=== PATIENT | male | born 1950 | race Caucasian/White ===

== ENCOUNTER → 2021-01-14 07:04 | Outpatient (CLI) | payer OTHER, SELFPAY ==
[2021-01-14 08:17] LABS: Add Manual Diff / Slide Review NO; Basophils Absolute Auto 0 /uL (0-100); Basophils Percent Auto 0.7 % (0-2); Eosinophils Absolute Auto 100 /uL (0-450); Eosinophils Percent Auto 2.3 % (2-4); Hematocrit 46.9 % (41-53); Hemoglobin 15.5 g/dL (13.5-17.5); Lymphocytes Absolute Auto 900 /uL (1100-4500); Lymphocytes Percent Auto 19.7 % (25-40); Mean Corpuscular Volume 94.1 fL (80-100); Monocytes Absolute Auto 400 /uL (0-900); Monocytes Percent Auto 8.9 % (3-14); Neutrophils Absolute Auto 3000 /uL (1500-7000); Neutrophils Percent Auto 68.4 % (50-75); Platelet Count 218 X10^3/uL (150-400); Red Blood Cell Count 4.99 X10^6/uL (4.5-5.9); Red Cell Distribution Width 14.2 % (11.6-14.8); White Blood Cell Count 4.5 X10^3/uL (4.5-11.0)
[2021-01-14 08:35] LABS: Hemoglobin A1C% w Est Avg Glu 5.3 % (4.0-6.0)
[2021-01-14 08:41] LABS: Alanine Aminotransferase 34 IU/L (<50); Albumin 4.3 g/dL (3.5-5.0); Albumin Globulin Ratio 1.9 (1.0-2.8); Alkaline Phosphatase 85 U/L (38-126); Aspartate Aminotransferase 33 IU/L (17-59); BUN Creatinine Ratio 28.8 (6-22); Bilirubin Total 0.7 mg/dL (0.2-1.3); Blood Urea Nitrogen 23 mg/dL (9-20); Calcium 9.4 mg/dL (8.4-10.2); Carbon Dioxide 27 mmol/L (22-32); Chloride 107 mmol/L (98-107); Cholesterol 119 mg/dL (140-199); Estimated Glomerular Filt Rate > 60.0 mL/min (>60); Globulin 2.3 g/dL (1.7-4.1); Glucose 98 mg/dL (80-110); HDL Cholesterol 62 mg/dL (40-60); HEMOLYSIS < 15 (0-50); LDL Cholesterol Calculated 44 mg/dL (<100); Potassium 4.5 mmol/L (3.4-5.1); Sodium 141 mmol/L (137-145); Total Protein 6.6 g/dL (6.3-8.2); Triglycerides 65 mg/dL (35-150)
== END ==
PROVIDERS: PCP Family Medicine; Referring Provider Orthopaedic Surgery; Visit Provider Orthopaedic Surgery
DX: Z01.812 Encounter for preprocedural laboratory examination (principal); I10 Essential (primary) hypertension; Z01.818 Encounter for other preprocedural examination; M25.562 Pain in left knee; R73.9 Hyperglycemia, unspecified
CPT/HCPCS: 36415; 80053; 80061; 83036; 85025; 93005; 93010

== ENCOUNTER → 2021-02-12 15:58 | Outpatient (CLI) | payer OTHER, SELFPAY ==
[2021-02-12 16:23] LABS: COVID19 -Nasal RAPID Negative (Negative)
== END ==
PROVIDERS: PCP Family Medicine; Referring Provider Nurse Practitioner; Visit Provider Nurse Practitioner
DX: Z20.822 Contact with and (suspected) exposure to COVID-19 (principal); Z01.812 Encounter for preprocedural laboratory examination
CPT/HCPCS: 87635

== ENCOUNTER 2021-02-15 13:40 | Observation (INO) | payer OTHER, SELFPAY ==
[2021-02-09 08:56] VITALS: BMI 25.4
[2021-02-15] VITALS (13 sets, daily range): BP systolic 120–160; BP diastolic 53–80; PULSE 46–82; RESP 8–18; TEMP 35.6–37; O2SAT 90–98; BMI 25.4
[2021-02-15] MEDS: CELECOXIB 200 MG CAPSULE PO (14:22)
[2021-02-15] MEDS: PREGABALIN 75 MG CAPSULE PO (14:22)
[2021-02-15] MEDS: ACETAMINOPHEN 325 MG TABLET 975 MG PO (14:22)
[2021-02-15] MEDS: LACTATED RINGERS 1,000 ML 42 ML IV ×2 (14:28→16:57)
--- NOTE | 2021-02-15 14:45 | DI.RAD.S_ITS ---
PROCEDURE: XR KNEE LT 1TO2V INDICATIONS: RT TOTAL KNEE TECHNIQUE: 2 view(s) of the knee acquired. [facility] 4+ VIEWS LEFT, 11/24/2020, 14:17. FINDINGS: Bones: Patient is status post knee joint arthroplasty. Hardware components are in expected positions. Visualized bony structures are intact. Soft tissues: Overlying postoperative changes are noted. IMPRESSION: Expected appearance of the left total knee arthroplasty. Dictated by: Mario Alberto Albarado M.D. on 02/16/2021 at 8:18 Approved by: Mario Alberto Albarado M.D. on 02/16/2021 at 8:18
--- NOTE | 2021-02-15 15:10 | PM.PREOP ---
Pre-operative Note COVID-19 COVID-19 status: Negative Result date/Date tested (Pos, Neg/Pending): 02/12/21 Interval Note History & Physical reviewed/Exam performed by Physician: Yes Changes to H&P: No
--- NOTE | 2021-02-15 15:19 | PM.OP.1 ---
Operative Date/Time/Diagnoses Date of procedure: 02/15/21 Time of procedure: 17:30 Pre-op diagnosis: Left knee osteoarthritis Post-op diagnosis: same Procedure & Clinicians Procedure: Left total knee replacement Same procedure as scheduled: Yes Indications: The patient has had progressively worsening left knee pain with radiographic changes consistent with arthritis. Non-operative management has failed and the patient has requested total knee replacement. The risks, benefits and alternatives to surgery were discussed with the patient prior to proceeding. Risks discussed included, but were not limited to, failure to relieve pain, stiffness, infection, nerve damage, deep venous thrombosis, pulmonary embolism, stroke, coma, heart attack, permanent paralysis and , as well as the potential need for eventual revision of the prosthetic. Surgeon: Mehrdad Head Neuro Urologist: Giovanni Muñoz Click Yes if Unassisted: No Anesthesia Type: Local Operative Notes Findings: Severe medial and moderate patellofemoral osteoarthritis. Closure Type: primary Specimen(s): none sent Prosthetic devices, grafts, tissues, transplants, or devices: Implants used in this procedure were manufactured by the [employer] and [employer] and included the BCS II Journey total knee replacement with a size 6 left cobalt chromium femoral component, size 5 left non porous tibial base plate, a 10 mm cross-linked polyethylene tibial insert and a 35 mm oval Kelly II patellar resurfacing component. Applied: implant(s) Estimated Blood Loss (mL): 25 Blood products transfused: none Tourniquet time (min): 51 Procedure in detail: The patient was seen in the pre-operative area, where the left knee was identified as the operative site and this was marked with my initials. The patient received pre-operative antibiotics, and was taken to the operating room and placed on the operative table in the supine position. After satisfactory anesthesia, a audio technician out was performed. The left leg was encircled with a tourniquet about the proximal thigh, and the leg was prepared from the toes to the tourniquet with ChloroPrep in the usual fashion and draped through sterile drapes. The leg was elevated and exsanguinated with Eschmark bandage and the tourniquet inflated to 250 mmHg pressure. The knee was approached through an approximately 18 cm incision centered over the patella and carried into the knee through a medial parapatellar arthrotomy. The anterior osteophytes and soft tissues were removed. The rotational landmarks of Eddy's line and the transepicondylar axis were marked on the femur with electrocautery, and intramedullary guide holes for the femur and tibia were created. The distal femoral cut was made in 6 degrees of valgus using the intramedullary guide at the primary cut setting. The proximal tibial cut was then made using the intramedullary guide, taking 9 mm of bone off the less involved side. The extension gap was checked and the rotation of the femoral component confirmed with the gap balancing blocks. The anterior, posterior and chamfer cuts were then made. The posterior osteophytes and soft tissues were then removed. The posterior capsule was injected with part of a mixture of 60 ml 0.25% Marcaine mixed with 20 ml Exparel and 4 mg of morphine for post-operative pain control. The remainder of this mixture was injected into the capsule and subcutaneous tissues during cement curing. The tibia was prepared with the rotation set by an extra medullary guide. Trial tibial and femoral components were then placed and the intercondylar notch cut through the femoral trial. Range of motion was 0-140 degrees, with good stability throughout the range. The patella was then cut to accommodate the patellar prosthetic. There was no need for a lateral release. The trials were then removed, and the femoral hole plugged with a bone plug. The bone was prepared with pulsatile lavage, and dried with a sponge. Cement was applied and the final prosthetics placed. Excess cement was removed during and after cement curing. After confirming there was no extruded cement posteriorly, the final tibial insert was placed. The knee was copiously irrigated and the tourniquet deflated. Hemostasis was obtained. The capsule was closed with interrupted # 2 polyester sutures. The subcutaneous layer was closed with 3-0 Vicryl, and the skin with a running 3-0 V-Lock suture and Dermabond. An Aquacel Ag dressing was applied and the patient was taken to recovery having tolerated the procedure well. Post-operative Condition: stable Disposition: PACU Plan for aftercare: The patient will be maintained on a standard total knee replacement protocol with weight bearing as tolerated. The patient will receive aspirin and sequential compression devices for DVT prophylaxis. The patient will be discharged home when safe for the home environment.
[2021-02-15] MEDS: CEFAZOLIN 1 GM VIAL 2 GM IV (16:04)
--- NOTE | 2021-02-15 16:20 | SUR.OPER ---
Supine on padded OR bed. Pillow under head, arms secured on padded armboards <90 degree abduction. Safety belt across torso. Non-operative leg secured with tape over blanket over lower leg. Operative leg secured in DeMayo/Wilder/Nathe positioner. Foam padded brace at thigh of operative leg.
[2021-02-15] MEDS: BUPIVACAINE LIPOSOME 266 MG/20 ML VIAL INJ (16:29)
[2021-02-15] MEDS: MORPHINE 4 MG/ML INJ INJ (16:29)
[2021-02-15] MEDS: BUPIVACAINE 0.25% (PF) VIAL 30 ML INJ (16:31)
[2021-02-15] MEDS: EPINEPHrine 1 MG/ML 0.15 MG INJ (16:32)
[2021-02-15] MEDS: TRANEXAMIC ACID 1,000 MG VIAL 1000 MG INJ ×2 (16:34→17:20)
--- NOTE | 2021-02-15 18:28 | SUR.PHASEI ---
Patient transferred in bed to room 218 by this RN. SBAR report to Yesi Cassidy, dressing checked together. Bed in low position. Call light in place. Pt transferred with belongings.
[2021-02-15] MEDS: LACTATED RINGERS 1,000 ML 100 ML IV (18:49)
[2021-02-15] MEDS: IBUPROFEN 400 MG TABLET PO (20:53)
[2021-02-15] MEDS: ACETAMINOPHEN 325 MG TABLET 650 MG PO (20:54)
[2021-02-15] MEDS: DOCUSATE 100 MG CAPSULE PO (20:54)
[2021-02-15] MEDS: ASPIRIN EC 81 MG TABLET PO (20:54)
[2021-02-16] MEDS: ONDANSETRON 4 MG/2 ML INJ IV ×2 (03:12→10:35)
[2021-02-16 03:55] VITALS: BP 126/56; PULSE 48; RESP 18; TEMP 36.2; O2SAT 99
--- NOTE | 2021-02-16 04:01 | PC.NURSE ---
Pt unable to urinate on own 8 hrs post-op. Bladder scanned at 0230, approx 500 mL noted in bladder. Allowed additional attempt to urinate with no success. Straight cath retrieved approx 550 mL from bladder, procedure tolerated well. Urine colored hector, pt agreed to continue oral intake of fluids.
[2021-02-16] MEDS: IBUPROFEN 400 MG TABLET PO ×3 (05:05→14:59)
[2021-02-16 06:07] LABS: Hematocrit 42.6 % (41-53); Hemoglobin 13.9 g/dL (13.5-17.5)
--- NOTE | 2021-02-16 07:37 | PM.DS.1 ---
History of Present Illness History of Present Illness Date Patient Seen: 02/16/21 Time Patient Seen: 07:37 Chief complaint: OPB Narrative: The history and physical is contained in the chart previously completed note. Please refer to that note for this information. Discharge Providers Provider Date of admission: February 15, 2021 Discharge Date: 02/16/21 Primary care physician: Solomon Jovel MD Consults: 02/15/21 18:21 Consult to Discharge Planning Routine Comment: Consult to Physical Therapy Evaluate & Treat Comment: Physician Instructions: postop TKA protocol Discharge provider: Mehrdad Head MD Summary Hospital Course Discharge Diagnosis: Osteoarthritis of the left knee Hospital Course: The patient was admitted to the hospital and taken directly to the operating room on February 15, 2021. He underwent a left total knee replacement without complications. On postoperative day 1 he was very comfortable. The plan at this point is for discharge later in the morning after physical therapy. Status at Discharge Cognitive/behavioral status at discharge: oriented Functional status at discharge: uses cane/walker Overall status at discharge: patient is progressing back to baseline Time Spent with Patient Time spent: Less than 30 minutes Exam Vital Signs (past 8 hours): - 02/15/21 23:50 02/16/21 03:55 Temperature 97.0 F L 97.2 F L Pulse Rate 56 L 48 L Respiratory Rate 16 18 Blood Pressure 122/72 126/56 L Pulse Oximetry 98 99 Oxygen Delivery Method Room Air Oxygen Flow Rate 0 Narrative Exam Narrative: Left knee wound is dressed with no drainage on the bandage. Calf is soft. Light touch and motion are intact in the left lower extremity. Objective Labs Result Diagrams: 02/16/21 05:19 Labs: Laboratory Results - last 24 hr 02/16/21 05:19 Hgb 13.9 Hct 42.6 PFSH Medical History (Updated 02/08/21 @ 10:18 by Roseanne Euceda RN) Arrhythmia CAD (coronary artery disease) Colon polyp Easy bruisability Esophagitis Hiatal hernia History of left heart catheterization (07/2014) HLD (hyperlipidemia) HTN (hypertension) Non-ST elevated myocardial infarction (07/2014) Nonrheumatic aortic valve regurgitation Nonrheumatic mitral valve regurgitation Osteoarthritis Seasonal allergies Sinus bradycardia Tinnitus Vertigo Surgical History (Updated 02/08/21 @ 10:18 by Roseanne Euceda RN) H/O coronary angioplasty History of vasectomy Hx of appendectomy Hx of colonoscopy (12/19/19) Hx of heart artery stent (07/2014) Hx of tonsillectomy Social History household members: spouse Smoking Status: Former smoker alcohol intake: current Discharge Assessment & Plan Assessment and Plan Assessment: Stable postoperative day 1 status post left total knee replacement. Plan of Treatment: Discharge home today. Follow up my office in 2 weeks. He already has his oxycodone at home. He has been instructed on the use of Tylenol and ibuprofen for pain relief and the use of low-dose aspirin for DVT prophylaxis. Discharge Plan Discharge Plan Patient Disposition: Home Discharge orders & Medications Discharge Orders: Discharge (Order); Ordered 02/16/21 Ordered By: Mehrdad Head Prescriptions: New acetaminophen 325 mg Tablet 650 mg PO TID 30 Days Qty: 180 RF: 0 aspirin 81 mg Tablet,Delayed Release (Dr/Ec) 81 mg PO BID 42 Days Qty: 84 RF: 0 ibuprofen 400 mg Tablet 400 mg PO Q4HR 30 Days RF: 0 oxycodone 5 mg Tablet 5 mg PO Q4H PRN (Reason: Pain, Moderate (4-6)) Qty: 40 RF: 0 Continued atorvastatin 40 mg Tablet 40 mg PO QPM RF: 0 lisinopril 2.5 mg Tablet 2.5 mg PO QPM RF: 0 Discontinued aspirin [Aspir-Low] 81 mg Tablet,Delayed Release (Dr/Ec) 81 mg PO DAILY RF: 0 ibuprofen 200 mg Tablet 400 mg PO DAILY PRN (Reason: Pain) RF: 0 Follow up/Referrals: Solomon Jovel MD [Primary Care Provider] - Mehrdad Head MD [Physician] - 2 Weeks Diet/Activity/Treatments Diet: Diet as Tolerated and Regular Activity: You may bear weight as tolerated on your left leg. Cold/Heat Therapy: Apply ice to the left knee for 15 minutes every hour as needed for pain control. Skin/Wound/Dressing Care Report to your healthcare provider any signs of infection, such as:: chills, fever, night sweats, increased pain, unusual drainage and unusual redness Dressing: You may remove the Dilip wrap 3 days after surgery and shower normally. Leave the deeper dressing in place until follow-up. If the central strip of the deeper dressing becomes saturated with either water or blood, please call the office to have it evaluated. Visit Report/Discharge Packet Instructions: TIMUR for Knee Replacement Stand Alone Forms: Surgery Discharge Discharge Data Primary Care Provider: Solomon Jovel Attending Provider: Mehrdad Head Quality VTE Deep Vein Thrombosis/Pulmonary Embolism Present on Admission: No
[2021-02-16 08:38] VITALS: BP 128/52; PULSE 51; RESP 19; TEMP 36.4; O2SAT 100
[2021-02-16] MEDS: ASPIRIN EC 81 MG TABLET PO (08:46)
[2021-02-16] MEDS: ACETAMINOPHEN 325 MG TABLET 650 MG PO (08:46)
[2021-02-16] MEDS: SODIUM CHLORIDE 0.9% FLUSH 10 ML IV (08:48)
[2021-02-16] MEDS: DOCUSATE 100 MG CAPSULE PO (08:48)
--- NOTE | 2021-02-16 10:11 | PT.IIE ---
Current Diagnoses Unilateral primary osteoarthritis, left knee (02/15/21) Surgery Performed Operation Date: 02/15/21 14:45 Actual Procedures p Total Knee Arthroplasty(Left) - Mehrdad Head MD Medical History (Last Updated 02/08/21 @ 10:18 by Roseanne Euceda RN) Arrhythmia CAD (coronary artery disease) Colon polyp Easy bruisability Esophagitis Hiatal hernia History of left heart catheterization (07/2014) HLD (hyperlipidemia) HTN (hypertension) Non-ST elevated myocardial infarction (07/2014) Nonrheumatic aortic valve regurgitation Nonrheumatic mitral valve regurgitation Osteoarthritis Seasonal allergies Sinus bradycardia Tinnitus Vertigo Physical Therapy Inpatient Evaluation/Re-Eval M1 PT/OT-IP Prior Functional Status Start: 02/16/21 12:06 Freq: NEEDED Status: Active Protocol: Document 02/16/21 10:11 AB (Rec: 02/16/21 12:19 AB [id number]) Medical Review Prior Functional Status Medical History Reviewed Yes Communication able to make needs known Mobility and Gait pt stated that he is independent with all mobilities and ambulation without AD Social History Household Members spouse Living Arrangements House Number of Floors (Floors) Two Floors Number of Stairs To Enter/Railing? pt stays on main level of the house Home Environment High Toilet,Walk in Shower Home Equipment Front Wheel Walker,Straight Cane Employment Status Retired M2 PT-IP Current Condition Start: 02/16/21 12:06 Freq: NEEDED Status: Active Protocol: Document 02/16/21 10:11 AB (Rec: 02/16/21 12:19 AB [email or web address]) Physical Therapy Current Condition Current Condition Evaluation Date 02/16/21 Treatment Diagnosis s/p L TKA; difficulty in walking Onset Date 02/15/21 Weight Bearing Status Weight Bearing Status Weight Bear as Tolerated Allowed Weight Bearing Amount (enter % LLE WBAT or #) (%) M3 PT-IP Subjective Start: 02/16/21 12:06 Freq: NEEDED Status: Active Protocol: Document 02/16/21 10:11 AB (Rec: 02/16/21 12:19 AB [email or web address]) Subjective Physical Therapy Visit Type Type Initial Evaluation Visit Start Time 10:11 Visit Stop Time 10:48 Total Visit Minutes 37 Number of CHANNEL DIRECTOR Visits 0 Physical Therapy Visit Comments Patient Comments pt is agreeable to do PT but c /o nausea Therapy Pain Assessment Pain When Pain Assessed At Rest Pain Present Pain Present Pain Reported Location Left Knee Intensity 2 Scale Used Numeric (0 - 10) Pain Management Techniques Distraction,Modification of Treatment,Re-positioning, Timing of Activity with Medications M4 PT-IP Mobility and Gait Start: 02/16/21 12:06 Freq: NEEDED Status: Active Protocol: Document 02/16/21 10:11 AB (Rec: 02/16/21 12:19 AB [email or web address]) PT-Bed Mobility Assessment Supine to Sit Supine to Sit Standby Assistance Sit to Supine Sit to Supine Standby Assistance PT-Transfer Assessment Sit to and From Stand Sit to and from Stand Standby Assistance,Contact Guard Assistance,1 Person Assistance,Use of Upper Extremities Equipment Transfer Assistive Device Gait Belt,Front Wheeled Walker Orthotic/Prosthetic Devices or Brace: No Transfers Transfer Destination Bed,Chair,Bedside Commode Transfer Technique Stand Step Pivot Transfer Ability Level of Assist Standby Assistance,Contact Guard Assistance,1 Person Assistance,Use of Upper Extremities Comments Mobility Comments pt sitting on bedside commode but agreed to do PT. completed sit to stand CGA and step transfer to bed using FWW CGA. pt completed transfer without weight bearing on LLE. informed pt regarding WBAT on LLE and stated that he did not know he can use his leg. pt completed sit <> supine SBA . BP: 128/73. pt with c/o nausea and requires rest breaks in between tasks. pt completed ambulation in room 20 ft using FWW SBA to CGA and cues for L quads activation. pt agreed to do stairs. ambulated from chair to step ~ 25 ft using FWW SBA to CGA. completed up/down platform step using FWW SBA to CGA and repeated x 2 sets. ambulated back to room FWW SBA to CGA and sat on EOB. continues to c /o nausea with (+) emesis. nurse aware. pt felt better afterwards and requested to use the bedside commode again. completed step transfer using FWW to bedside commode SBA to CGA. call light set set to pt. informed pt regarding safety and offered caregiver training but pt stated that his spouse will be able to assist and does not need the training. Gait Assessment Gait Gait Assistance Required: Standby Assistance,Contact Guard Assist Distance (Feet) 25 Able to Maintain Weight Bearing Status Yes During Gait Assistive Devices Assistive Device Gait Belt,Front Wheeled Walker Orthotic/Prosthetic Devices or Brace: No Gait Deviations General Gait Pattern Antalgic,Decreased Stride Length,Decreased Feet Clearance,Step-to Gait Factors Limiting Gait Function Factors Limiting Gait Function Decreased Activity Tolerance, Decreased Strength,Limited Range of Motion,Pain,Poor Balance,Poor Safety Awareness Stair Climbing Assessment Evaluation Level of Assist On Stairs Contact Guard Assistance Devices Stair Climbing Assistive Devices Four Wheel Walker Technique/Endurance Stair Climbing Direction Ascend and Descend Stair Climbing Technique Step to Step Number of Steps Climbed 1 Query Text: Stair Climbing Set # Repetitions (reps) 2 PT-Balance Assessment Sitting Balance and Reactions Static Sitting Balance Ability Good Dynamic Sitting Balance Ability Good Standing Balance and Reactions Static Standing Balance Ability Fair Dynamic Standing Balance Ability Fair Device Used FWW M5 PT-IP Objective Assessments Start: 02/16/21 12:06 Freq: NEEDED Status: Active Protocol: Document 02/16/21 10:11 AB (Rec: 02/16/21 12:19 AB [email or web address]) Orientation Orientation/Cognition Level of Alertness Alert Orientation Name,Place,Situation Language Function Ability No Deficits Noted Safety Awareness Decreased Safety Awareness Gross Range of Motion Lower Extremity ROM Impairments L knee flexion: ~ 90 deg Strength Lower Extremity Strength Assessment Left Impaired Hip 4-/5 Knee 3+/5 Sensation Assessment Sensation Gross Sensation WNL Muscle Tone Muscle Tone WNL Yes M6 PT-IP Treatment Start: 02/16/21 12:06 Freq: NEEDED Status: Active Protocol: Document 02/16/21 10:11 AB (Rec: 02/16/21 12:19 AB [email or web address]) Physical Therapy Treatment Education Education Provided Precautions,Weight Bearing Status,Post-Op Packet,Safety M7 PT-IP Assessment and Plan Start: 02/16/21 12:06 Freq: NEEDED Status: Active Protocol: Document 02/16/21 10:11 AB (Rec: 02/16/21 12:19 AB [email or web address]) PT Summary Assessment and Plan Potential Rehabilitation Potential Good Status of Condition at Evaluation Evolving Summary Impairments Pain,ROM,Strength,Balance, Coordination,Bed Mobility, Transfers,Gait,Activity Tolerance Assessment Summary pt requiring SBA to CGA with mobility and has c/o nausea with (+) emesis affecting activity tolerance. pt plans to go home with spouse to assist him and has outpt PT set up/ pt may go home when medically stable. Goals Bed Mobility Goal Independent Transfer Goal Independent,Front Wheeled Walker Gait Goal Independent,Front Wheel Walker Gait Distance 200 Other Goals up/down 1 step using FWW mod I Days to Meet Goals 3 Frequency of Treatment Frequency Of Treatment Twice a Day Treatment Plan Physical Therapy Treatment Plan Bed Mobility Training,Transfer Training,Gait Training, Therapeutic Exercise,Balance Retraining,Post Op Education, Discharge Planning,Hot or Cold Pack,Neuromuscular Re-ed, Coordination Retraining,Manual Therapy Recommendations To Nursing Amount of Assist Needed 1 Person Assist Discharge Recommendations PT Discharge Recommendations Home with Assistance, Outpatient PT Transportation Needs at Discharge Private Vehicle
[2021-02-16] MEDS: METOCLOPRAMIDE 10 MG/2 ML INJ IV (11:51)
[2021-02-16 11:54] VITALS: BP 124/48; PULSE 61; RESP 16; TEMP 36.1; O2SAT 100
--- NOTE | 2021-02-16 13:22 | PC.NURSE ---
Have not discharged patient yet as he is still having difficulty with urinary retention. Bladder scan at 1030 am showed 600 ml of urine in bladder. Pt was able to void 275 ml on own but has not voided the rest yet. Will re-scan bladder. Also, pt vomited 600 ml after breakfast. He did not eat lunch. Zofran and Reglan were both given prn. Due to inability to tolerate PO intake and inability to empty bladder, have not discharged him. Called Dr Head office to notify him of this. Left message with Dr Head ice cream freezer assistant.
--- NOTE | 2021-02-16 13:43 | CM.DANOTE ---
DCP assessment: patient is a 70 yr old male presented for L TKA preformed by Dr schwartz. Cm met with patient at the bedside and explained role. Patient was alert and oriented at time of visit. Patient is Independent at baseline with all ADLs and drives at baseline. Patient currently lives i a two story home but stays on the ground level. Patient has a high toilet, Walk in shower and uses a cane as needed. I: [facility] Medical and Self pay Plan: Discharge home with spouse when patient is able to void properly. No DC planning needs noted at this time CM department will follow to assist with any DC planning needs that may arise. Teresa Tam RN Discharge Planning/Care Management Advanced directive, confirm from FAMILY Start: 02/15/21 19:20 Freq: Q24H Status: Active Protocol: Document 02/15/21 23:00 MW (Rec: 02/16/21 02:11 MW [id number]) Advance Directive, confirm on record Time 23:00 Person contacted pt Copy received No CM Discharge Assessment Start: 02/16/21 13:31 Freq: Status: Active Protocol: Document 02/16/21 13:41 HS (Rec: 02/16/21 13:43 HS [id number]) Discharge Planning Assessment Assigned Operations Support Coordinator Teresa Tam RN DPOA/Assigned Designee Name Diane Proctor () Contact Information [phone] Advance Directives? Yes Advance Directives on File No History Provided By Patient,Medical Record Has Patient been admitted in last 30 No days? Prior Living Arrangements House Household Members spouse Type of transporation used prior to Drives own vehicle admit Independent with ADL's Yes Is patient alert and oriented? Yes Caregiver for Another No Barriers to Discharge No Referrals Initiated None needed Whiteboard Updated in Patient Room with Yes name and ext. # of Operations Support Coordinator Review Status In Process Next Review Type Continued Stay Review Pre-Anesthesia Assessment Start: 02/08/21 09:44 Freq: Status: Active Protocol: Document 02/09/21 08:56 CAB (Rec: 02/08/21 10:45 CAB [id number]) Pre-Anesthesia Assessment Preferred Name Gasper Patient Information Reviewed Via Phone Assessment Assessment Completed With Patient Diagnostic Results BMP/CMP,CBC,EKG Comment Labs/EKG @ [facility] 01/14/21, COVID screen @ 02/12/21 Primary Care Provider Solomon Jovel Seen Specialist in Last 12 Months Yes Specialist Seen Appliances Sample Maker,ENT,Orthopedist Primary Language Latvian Quality Review Specialist Required No Height 176.53 cm Weight 79.379 kg Body Mass Index (BMI) 25.4 Hearing Ability Normal Visual Assist Glasses Dentition Type Teeth, Natural Present,Teeth, Missing,Dental Implants Barriers to Learning None Hx Anesthesia Reactions No Hx Family Anesthesia Reaction No Hx Malignant Hyperthermia No Hx Blood Transfusions No Anesthesia Review Requested No alcohol intake current alcohol intake frequency a few times a week Smoking Status Former smoker how long ago did patient quit smoking Quit >30 years ago Substance Use Type marijuana Comment Advised not to smoke marijuana 24 hours prior Musculoskeletal Symptoms Abnormal Gait,Back Pain, Difficulty Walking,Joint Pain, Limited Range of Motion History of Falling (Recent or History of No ) Patient is completely paralyzed or No completely immobile Mental Status Oriented to own ability Is patient on oxygen? No Does patient have DICKERSON/SOB No Hx Sleep Apnea No Currently Taking a Beta Aung No Can You Climb a Flight of Stairs Without Yes SOB Hx Chest Pain Yes: r/t MA 2014, none since Hx SOB Yes: r/t MA 2014, none since Hx Syncope or Dizziness Yes: Vertigo Anti-Coagulant Therapy Yes: Aspirin-hold 5-7 days prior per cardiology Has a Appliances Sample Maker Yes: Dr. Albrecht last visit Hx Pacemaker/ICD No Pacemaker Rep Required? No Cardiac Clearance Received Yes Comment Cardiac records scanned Additional comment Active hiker Diet Type At Home Regular dysphagia No Bladder Pattern Nocturia Urinary Catheter Present No Hx Urinary Self Catheterization No Diabetes No HgbA1C 5.3 Date 01/14/21 Hx Drug Resistant Organism No Presence of External or Internal Medical Yes: Cardiac stent Devices Have you had any close contact with No someone diagnosed with COVID-19? Marital Status Lives With spouse Prior Living Arrangements House Number of Floors (Floors) Two Floors Support System Spouse Does the Patient Have Assistance After Yes Surgery Patient Discharge Plan Description Return Home Comment Pt advised possible same day surgery per surgeon Feels Safe in Current Environment Yes Been Physically Hurt or Threatened By a No Person in Current Environment Do you have thoughts of harming yourself None or others? Are you currently considering suicide? No Do you have a plan to hurt yourself or No Plan others? Do You Have Any Spiritual Beliefs That No May Affect Your HC Choices? Do You Have Any Cultural Practices That No May Affect Your HC Choices? Who Can We Speak to About Patient's Care Family, friends Identifying Code for Release of Patient Declines to issue Information Health Care Proxy/Next of Kin Diane () Health Care Proxy Emergency Contact Name Diane () Emergency Contact Advance Directives? Yes Power of Retail Shift Leader Yes Power of Retail Shift Leader Name Diane () Power of Retail Shift Leader PAC Instructions Durable medical equipment, Medications to take/avoid, Nasal antibiotic,No ETOH/ petroleum product on skin DOS, Pre-surgical wash,Sensory aids ,Sturdy shoes/comfortable clothes,Do not bring valuables and remove jewelry
[2021-02-16] MEDS: TAMSULOSIN 0.4 MG CAPSULE 0.8 MG PO (15:00)
--- NOTE | 2021-02-16 15:40 | PT.IPTN ---
Current Diagnoses Unilateral primary osteoarthritis, left knee (02/15/21) Surgery Performed Operation Date: 02/15/21 14:45 Actual Procedures p Total Knee Arthroplasty(Left) - Mehrdad Head MD Physical Therapy Treatment Note M2 PT-IP Current Condition Start: 02/16/21 12:06 Freq: NEEDED Status: Active Protocol: Document 02/16/21 10:11 AB (Rec: 02/16/21 12:19 AB [id number]) Physical Therapy Current Condition Current Condition Evaluation Date 02/16/21 Treatment Diagnosis s/p L TKA; difficulty in walking Onset Date 02/15/21 Weight Bearing Status Weight Bearing Status Weight Bear as Tolerated Allowed Weight Bearing Amount (enter % LLE WBAT or #) (%) M3 PT-IP Subjective Start: 02/16/21 12:06 Freq: NEEDED Status: Active Protocol: Document 02/16/21 15:40 AB (Rec: 02/16/21 16:02 AB [id number]) Subjective Physical Therapy Visit Type Type Treatment Note Visit Start Time 15:40 Visit Stop Time 15:58 Total Visit Minutes 18 Number of FIRE TOWER KEEPER Visits 0 Physical Therapy Visit Comments Patient Comments agreeable to do PT Therapy Pain Assessment Pain When Pain Assessed At Rest Pain Present Pain Present Pain Reported Location Left Knee Intensity 3 Scale Used Numeric (0 - 10) Pain Management Techniques Apply Cold,Modification of Treatment,Re-positioning, Timing of Activity with Medications M4 PT-IP Mobility and Gait Start: 02/16/21 12:06 Freq: NEEDED Status: Active Protocol: Document 02/16/21 15:40 AB (Rec: 02/16/21 16:02 AB [id number]) PT-Bed Mobility Assessment Supine to Sit Supine to Sit Standby Assistance Sit to Supine Sit to Supine Standby Assistance PT-Transfer Assessment Sit to and From Stand Sit to and from Stand Standby Assistance Equipment Transfer Assistive Device Gait Belt,Front Wheeled Walker Orthotic/Prosthetic Devices or Brace: No Comments Mobility Comments agreed to do PT. completed supine to sit SBA . sit to stand SBA and ambulated using FWW ~ 125 ft SBA. requested to go back to bed after ambulation and completed sit to supine SBA. positioned in bed. call light and table placed within reach. ice pack provided. Gait Assessment Gait Gait Assistance Required: Standby Assistance Distance (Feet) 125 Able to Maintain Weight Bearing Status Yes During Gait Assistive Devices Assistive Device Gait Belt,Front Wheeled Walker Orthotic/Prosthetic Devices or Brace: No Gait Deviations General Gait Pattern Antalgic,Decreased Stride Length,Decreased Feet Clearance Factors Limiting Gait Function Factors Limiting Gait Function Decreased Activity Tolerance, Decreased Strength,Limited Range of Motion,Pain,Poor Balance M5 PT-IP Objective Assessments Start: 02/16/21 12:06 Freq: NEEDED Status: Active Protocol: Document 02/16/21 10:11 AB (Rec: 02/16/21 12:19 AB [id number]) Orientation Orientation/Cognition Level of Alertness Alert Orientation Name,Place,Situation Language Function Ability No Deficits Noted Safety Awareness Decreased Safety Awareness Gross Range of Motion Lower Extremity ROM Impairments L knee flexion: ~ 90 deg Strength Lower Extremity Strength Assessment Left Impaired Hip 4-/5 Knee 3+/5 Sensation Assessment Sensation Gross Sensation WNL Muscle Tone Muscle Tone WNL Yes M6 PT-IP Treatment Start: 02/16/21 12:06 Freq: NEEDED Status: Active Protocol: Document 02/16/21 15:40 AB (Rec: 02/16/21 16:02 AB [id number]) Physical Therapy Treatment Education Education Provided Safety M7 PT-IP Assessment and Plan Start: 02/16/21 12:06 Freq: NEEDED Status: Active Protocol: Document 02/16/21 15:40 AB (Rec: 02/16/21 16:02 AB [id number]) PT Summary Assessment and Plan Potential Rehabilitation Potential Good Summary Impairments Pain,ROM,Strength,Balance, Coordination,Sensation,Tone, Cognition,Bed Mobility, Transfers,Gait,Activity Tolerance Progress Towards Goals Progressing Toward Goals Assessment Summary pt progressing with mobility. pt still has problems with bladder function and not able to d/c today per NAC. pt plans to go home with spouse to assist him. will continue to do PT to improve strength and independence. Goals Bed Mobility Goal Independent Transfer Goal Independent,Front Wheeled Walker Gait Goal Independent,Front Wheel Walker Gait Distance 200 Other Goals up/down 1 step using FWW mod I Days to Meet Goals 5 Frequency of Treatment Frequency Of Treatment Twice a Day Treatment Plan Physical Therapy Treatment Plan Bed Mobility Training,Transfer Training,Gait Training, Therapeutic Exercise,Balance Retraining,Post Op Education, Discharge Planning,Hot or Cold Pack,Neuromuscular Re-ed, Coordination Retraining,Manual Therapy Recommendations To Nursing Amount of Assist Needed 1 Person Assist Discharge Recommendations PT Discharge Recommendations Home with Assistance, Outpatient PT Transportation Needs at Discharge Private Vehicle
[2021-02-16 15:43] VITALS: BP 112/55; PULSE 58; RESP 18; TEMP 36.3; O2SAT 98
[2021-02-16 19:26] VITALS: BP 137/65; PULSE 59; RESP 18; TEMP 36.3; O2SAT 97
--- NOTE | 2021-02-16 20:55 | PC.NURSE ---
1930. Patient is now voiding without any difficulty and not longer has nausea. Spoke to Dr. Campo and he is ok with patient being discharge. Pt discharge via wheelchair with . Pt was given instructions and he is to call his orthopedic tomorrow so that he can get a prescription for flomax.
== END 2021-02-16 20:20 | disposition home or self-care (01) ==
LOC: OR 13:40 → AC 13:40
PROVIDERS: Admitting Provider Orthopaedic Surgery; PCP Family Medicine; Referring Provider Orthopaedic Surgery; Visit Provider Orthopaedic Surgery
PROC: 0SRD0JZ Replacement of Left Knee Joint with Synthetic Substitute, Open Approach (ICD-10-PCS; CPT 27447; principal; 2021-02-15 14:45)
DX: M17.12 Unilateral primary osteoarthritis, left knee (principal); I10 Essential (primary) hypertension; E78.5 Hyperlipidemia, unspecified; I25.10 Atherosclerotic heart disease of native coronary artery without angina pectoris; I25.2 Old myocardial infarction; Z95.5 Presence of coronary angioplasty implant and graft
CPT/HCPCS: 27447; 36415; 73560; 85014; 85018; 94762; 97116; 97162; 97530; C1776; G0378; C9290; J0171; J0690; J1100; J2250; J2270; J2274; J2405; J2704; J2765; J3010

== ENCOUNTER 2022-12-26 06:16 | Day surgery (SDC) | payer MEDICARE, OTHER, SELFPAY ==
[2021-02-15 19:16] VITALS: BMI 25.4
[2022-12-21 11:19] VITALS: BMI 22.3
[2022-12-26] VITALS (9 sets, daily range): BP systolic 122–135; BP diastolic 54–77; PULSE 44–521; RESP 4–18; TEMP 36.1–36.8; O2SAT 97–100; BMI 22.3
--- NOTE | 2022-12-26 | PATH_ITS ---
Note [facility] Accession Number: [id number] TESTS RESULT FLAG UNITS REF RANGE LAB Clinician Provided Cytology Information No. of containers..01 Urine Bottle Source: [A] 01 BLADDER URINE DIAGNOSIS: [A] 01 BLADDER URINE SUSPICIOUS FOR MALIGNANCY. 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) Gross description: 50 CC, YELLOW, HAZY RECEIVED: FRESH IN ORANGE CAP CONTAINER.VO /VDU 12/27/2022 1137 Local FLAG LEGEND: L-Low Normal,H-High Normal,LL-Alert Low,HH-Alert High <-Panic Low,>-Panic High,A-Abnormal,AA-Critical Abnormal Performed at: 01 =Z [facility] [address], [place] [address] Conner Agudelo MD, Performed at: 01 [facility] [address], [place], [place] [id number] MD Conner Agudelo MD Phone: [phone]
--- NOTE | 2022-12-26 06:51 | PM.PREOP ---
Pre-operative Note COVID-19 Criteria for continued procedure: Expected advancement of disease process, Possibility delay results in more complex future surgery or treatment, Deterioration of the patient's condition or overall health, Delay expected to result in less-positive ultimate med/surg outcome and Non-surgical alternatives not available or appropriate per current SOC Interval Note History & Physical reviewed/Exam performed by Physician: Yes Changes to H&P: No
[2022-12-26] MEDS: LACTATED RINGERS 1,000 ML 21 ML IV (07:00)
[2022-12-26] MEDS: ACETAMINOPHEN IV 1,000 MG/100 ML VIAL 400 MG IV (07:06)
[2022-12-26] MEDS: CEFAZOLIN 2 GM/100 ML PREMIX 100 ML IV (07:45)
--- NOTE | 2022-12-26 07:54 | SUR.OPER ---
Lithotomy on padded OR bed, head on pillow, arms secured on padded arm boards at <90 degrees abduction. Legs secured in padded yellow fins stirrups.
[2022-12-26] MEDS: WATER FOR INJECTION,STERILE 20 ML, mitoMYcin 20 MG INTRAVESIC (08:03)
[2022-12-26] MEDS: OXYCODONE IR 5 MG TABLET PO (09:12)
--- NOTE | 2022-12-26 10:11 | P.OP_ITS ---
Operative Date/Time/Diagnoses Date of procedure: 12/26/22 Time of procedure: 10:11 Pre-op diagnosis: 1. Bladder neoplasm. 2. Gross hematuria. Post-op diagnosis: same Procedure & Clinicians Procedure: 1. Cystoscopy/bladder biopsy. 2. Transurethral resection (fulguration) bladder tumor right dome (2-5 cm). 3. Cystoscopy/installation mitomycin-C (20 mg). Same procedure as scheduled: Yes Indications: 1. Bladder neoplasm right dome. 2. Gross hematuria Surgeon: Arie Son Click Yes if Unassisted: Yes Anesthesia Type: General Operative Notes Findings: 1. Urethra-caliber without annular stricture or lesion. 2. External sphincter- coapted with normal overlying urothelium. 3. Prostate-4.5+ cm length with moderate trilobar hyperplasia. Numerous benign inflammatory polyps of urothelium were seen. 4. Bladder-1+ trabeculation. Normal ureteral orifices bilaterally. The index lesion was again seen at the right dome and right posterolateral bladder wall. It was friable on readily bled upon moderate bladder filling. Closure Type: not applicable Specimen(s): other (Deep bladder wall biopsy x4.) Applied: catheter (20 Ukrainian Martinez catheter to gravity drainage.) Estimated Blood Loss (mL): 5 Procedure in detail: The patient was positioned in supine was administered general anesthesia. He was then repositioned in semi-lithotomy in the lower abdomen, genitalia, and groin were then prepped and draped in sterile fashion. The resectoscope was then advanced and lower urinary tract under direct visualization with the findings as described above. The bladder was then filled for visualization and the area of concern readily began to bleed. The resectoscope was then fitted with the golf club biopsy forceps. Deep sales training representative sampling were taken from the central portion of the lesion. The button electrode was then utilized to p rovide hemostasis of the bladder biopsy sites. Muscular fibers were seen and at least 2 of the areas. A tiny bit of fat could be visualized at 1 of the biopsy sites. The biopsy sites and the surrounding abnormal urothelium or cautery destroyed with the button electrode. Hemostasis was excellent. The bladder was left partially filled and the resectoscope removed. A 20 Ukrainian Martinez catheter was then inserted, the balloon inflated 10 cc common the bladder contents were drained. A 20 cc solution containing 20 mg of mitomycin C were then instilled in the bladder and a Martinez catheter plug inserted for anticipated 2 hour retention time per protocol. The patient was then repositioned in supine, was awakened, transferred to [facility], and transported recovery in stable condition. Complications: none Post-operative Condition: stable Disposition: PACU Plan for aftercare: Discharge home.
--- NOTE | 2022-12-26 11:00 | SUR.PHASEII ---
At 10:15 , carranza cath drained 320cc cranberry colored urine with out clots per chemo precaution protocol. dr. vasquez here to see pt. advised to irrigate with 30 ml sterile saline in carranza. irrigates easily, flows clear no clots. ivfluids given and pt. drinking fluids well. at bedside. understands discharge instructions. Pt. and advised to go to E.D if clots develop and carranza bag is not draining. verbalize understanding.
== END 2022-12-26 11:24 | disposition home or self-care (01) ==
PROVIDERS: PCP Physician Assistant Medical; Referring Provider Specialist; Visit Provider Specialist
PROC: 0TBB8ZZ Excision of Bladder, Via Natural or Artificial Opening Endoscopic (ICD-10-PCS; CPT 52235; principal; 2022-12-26 07:45)
DX: R31.0 Gross hematuria (principal)
CPT/HCPCS: 52235; J0131; J0690; J1100; J2405; J2704; J3010; J9280

== ENCOUNTER → 2023-01-25 14:11 | Outpatient (CLI) | payer MEDICARE, OTHER, SELFPAY ==
[2021-02-15 19:16] VITALS: BMI 25.4
== END ==
PROVIDERS: PCP Physician Assistant Medical; Visit Provider Specialist
DX: R31.0 Gross hematuria (principal)
CPT/HCPCS: 81002; 87086

== ENCOUNTER → 2023-02-02 07:55 | Outpatient (CLI) | payer MEDICARE, OTHER, SELFPAY ==
[2021-02-15 19:16] VITALS: BMI 25.4
== END ==
PROVIDERS: PCP Physician Assistant Medical; Visit Provider Specialist
DX: R31.0 Gross hematuria (principal)
CPT/HCPCS: 87086

== ENCOUNTER → 2023-02-09 08:50 | Outpatient (CLI) | payer MEDICARE, OTHER, SELFPAY ==
[2021-02-15 19:16] VITALS: BMI 25.4
== END ==
PROVIDERS: PCP Physician Assistant Medical; Visit Provider Urology
DX: C67.9 Malignant neoplasm of bladder, unspecified (principal); R31.0 Gross hematuria; N40.1 Benign prostatic hyperplasia with lower urinary tract symptoms; N13.8 Other obstructive and reflux uropathy
CPT/HCPCS: 51720; 81002; 87086; J9030

== ENCOUNTER → 2023-02-16 08:19 | Outpatient (CLI) | payer MEDICARE, OTHER, SELFPAY ==
[2021-02-15 19:16] VITALS: BMI 25.4
== END ==
PROVIDERS: PCP Physician Assistant Medical; Visit Provider Specialist
DX: R31.0 Gross hematuria (principal)
CPT/HCPCS: 87086

== ENCOUNTER → 2024-07-30 08:51 | Outpatient (CLI) | payer OTHER, SELFPAY ==
[2023-03-29 11:50] VITALS: BMI 25.4
== END ==
PROVIDERS: PCP Nurse Practitioner Family; Visit Provider Urology
DX: N40.1 Benign prostatic hyperplasia with lower urinary tract symptoms (principal); N13.8 Other obstructive and reflux uropathy; Z85.51 Personal history of malignant neoplasm of bladder
CPT/HCPCS: 87086

== ENCOUNTER → 2024-08-05 11:45 | Outpatient (CLI) | payer OTHER, SELFPAY ==
[2023-03-29 11:50] VITALS: BMI 25.4
--- NOTE | 2024-08-05 11:46 | DI.CT.S_ITS ---
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 After the administration of intravenous contrast, 5 mm thick images acquired from the diaphragm to the symphysis pubis after a 10-minute delay. 2 mm thick coronal and sagittal reformats were then performed of the kidneys and ureters. For radiation dose reduction, the following was used: automated exposure control, adjustment of mA and/or kV according to patient size. COMPARISON: [facility], CT, CT CHEST ABDOMEN PELVIS WITH CONTRAST, 11/28/2022, 13:23. FINDINGS: Image quality: Diagnostic. Kidneys and Ureters: Both kidneys are normal in size, without hydronephrosis or nephrolithiasis. No perinephric fat stranding. There is normal bilateral renal enhancement. Renal calyces appear normal in morphology when filled with contrast. Opacified portions of both ureters demonstrate normal caliber Bladder: Persistent and fairly stable asymmetric right lateral bladder wall thickening and smooth mucosal enhancement. No polypoid intraluminal or exophytic bladder masses. Minor diffuse perivesicular haziness in the pelvic fat may be related to treatment changes, less likely recurrence without focal mass. OTHER: Lower chest: Mild cardiomegaly and coronary artery calcification. Liver: Scattered hypodensities too small to accurately characterize, stable in size and number. Gallbladder: No wall thickening or calcified stones. Biliary ducts: No biliary dilation. Pancreas: Normal size and morphology without visible ductal dilatation or inflammation. Spleen: Size is within normal limits. Adrenal Glands: No adrenal nodules. Stomach and Bowel: Stomach and small bowel loops are normal caliber. Diverticular disease in the distal descending and sigmoid colon. Peritoneum: No abnormal intraperitoneal fluid. No free air. Ventral Wall: No hernia. Abdominal Nodes: No retroperitoneal or mesenteric adenopathy by size criteria. Vessels: The abdominal aorta, IVC, and portal vein are of normal caliber. Moderate abdominal aortic atherosclerotic calcification. PELVIS: Pelvic Organs: Significant prostate enlargement measuring about 7.0 x 7 2 x 5.7 cm. Pelvic Nodes: Increased size of borderline right external iliac chain lymph node measuring 7 mm, previously 5 mm. No other pelvic adenopathy. Miscellaneous: No inguinal hernias are seen. Bones: No aggressive osseous abnormality. IMPRESSION: Kidneys and ureters are normal without evidence malignancy. Probable treatment changes in the urinary bladder. There is persistent eccentric right bladder wall thickening and slight increase in mild diffuse haziness of the urinary bladder, probably treatment change. Slight increase in size of borderline right external iliac chain lymph node, nonspecific. Significant prostatomegaly. Sigmoid diverticulosis. Dictated by: Jennifer Rojas M.D. on 08/05/2024 at 20:40 Approved by: Jennifer Rojas M.D. on 08/05/2024 at 21:01
[2024-08-05 12:06] LABS: Estimated Glomerular Filt Rate > 60 mL/min (>60)
== END ==
PROVIDERS: PCP Nurse Practitioner Family; Referring Provider Urology; Visit Provider Urology
DX: K57.30 Diverticulosis of large intestine without perforation or abscess without bleeding (principal); N40.0 Benign prostatic hyperplasia without lower urinary tract symptoms; I25.10 Atherosclerotic heart disease of native coronary artery without angina pectoris; I51.7 Cardiomegaly; I70.0 Atherosclerosis of aorta; Z85.51 Personal history of malignant neoplasm of bladder
CPT/HCPCS: 36415; 74178; 82565; Q9967